=== PATIENT | male | born 1970 | race Caucasian/White ===

== ENCOUNTER → 2020-09-18 12:19 | Outpatient (CLI) | payer OTHER, SELFPAY ==
--- NOTE | 2020-09-18 12:25 | RAD_ITS ---
HISTORY: ABDOMEN PAIN EXAM: KUB COMPARISON: None FINDINGS: # of images incl. paperwork: 4 No free air is perceived. No dilated or loops of bowel are seen. There is no mass or suspicious calcification. No evidence of obstruction. RAD/Abd Inc Decub and/or Erect IMPRESSION: Normal abdomen. at 0421 Reported and signed by: Anthony Rodriguez MD Electronically Signed: Anthony Rodriguez MD at 4:20 EDT Tel , Service support ,
== END ==
PROVIDERS: PCP Family Medicine; Referring Provider Family Medicine; Visit Provider Family Medicine
DX: R10.9 Unspecified abdominal pain (principal)
CPT/HCPCS: 74019

== ENCOUNTER 2024-04-27 07:54 | Emergency (ER) | payer OTHER, SELFPAY ==
[2024-04-27 07:55] VITALS: BP 173/102; PULSE 83; RESP 16; TEMP 36.6; O2SAT 100; BMI 31.6
--- NOTE | 2024-04-27 08:06 | EX.ED.DYSGE1 ---
HPI History of Present Illness Chief Complaint: Dizziness Informant: patient Onset/Context/Timing Onset: Today Context: Sudden Onset Timing: Waxes and wanes Quality: Spinning, woozy Location: Generalized Worsened by: Nothing Relieved by: Nothing Associated Symptoms Associated Symptoms: Sweating Narrative Narrative: Patient presents with dizziness that began this morning. Patient states it has been waxing and waning throughout the day. Patient states it began rather suddenly. Patient describes as a spinning and woozy sensation. Patient states he did break out into a sweat with it. Patient states he has had decreased sleep over the past 2 days. Patient states nothing makes his symptoms better and nothing makes them worse. Patient denies any chest pain or shortness of breath. Patient denies any headaches. Patient denies any nausea or vomiting. PFSH PFSH Medical History no medical history no medical history Home Medications ?Medication ?Instructions ?Recorded ?Last Taken ?Type NK 07/02/23 Unknown History Allergy/AdvReac Type Severity Reaction Status Date / Time No Known Allergies Allergy Verified 04/27/24 07:57 Surgical History no surgical history no surgical history Social History Smoking Status: Never smoker ROS ROS ED Constitutional Constitutional ED: Reports sweats; Denies chills or fever(s) Eyes Eyes: Denies blurry vision or change in vision ENT ENT ED: Denies rhinorrhea or sore throat Cardiovascular Cardiovascular: Denies chest pain or palpitations Respiratory/Chest Respiratory/Chest: Denies cough or dyspnea Gastrointestinal Gastrointestinal: Denies nausea or vomiting Genitourinary Genitourinary ED: Denies dysuria or hematuria Musculoskeletal Musculoskeletal: Denies back pain or neck pain Integumentary Denies abscess or rash Neurologic Neurologic: Denies headache(s) or weakness Allergic/Immunologic Allergic/Immunologic ED: Denies mouth swelling or urticaria EXAM Physical Exam Const Vital Signs: 04/27/24 07:55 04/27/24 09:32 Temperature 97.8 F Temperature Source Oral Pulse Rate 83 Pulse Rate [Lying] 85 Pulse Rate [Sitting (for 1 minute prior to obtaining)] 81 Pulse Rate [Standing (for 1 minute prior to obtaining)] 91 Respiratory Rate 16 Blood Pressure 173/102 H Blood Pressure [Lying] 127/88 H Blood Pressure [Sitting (for 1 minute prior to obtaining)] 113/82 H Blood Pressure [Standing (for 1 minute prior to obtaining)] 136/90 H Blood Pressure Mean 125 Blood Pressure Mean [Lying] 101 Blood Pressure Mean [Sitting (for 1 minute prior to obtaining)] 92 Blood Pressure Mean [Standing (for 1 minute prior to obtaining)] 105 Pulse Ox 100 Oxygen Delivery Method Room Air Positive well nourished and well developed General Appearance ED: well developed and NAD HEENT Reports moist mucous membranes Eyes PERRL and EOMs intact bilaterally Eyes Narrative: There is no nystagmus noted. Neck supple and no JVD Resp normal respiratory effort and clear to auscultation bilaterally Cardio regular rate and regular rhythm GI non-tender and non-distended Palpation: soft Extremity normal to inspection General Extremety ED: Negative for edema or tenderness General Extremity: Negative for edema Neuro oriented x3, CN's II-XII intact bilaterally and no sensory deficits noted Sensorium / Orientation: alert Motor Exam: strength 5/5 throughout Psych mental status grossly normal MDM MDM MDM Narrative Medical decision making narrative: Differential diagnosis includes cardiac dysrhythmia, cardiac ischemia, electrolyte abnormality, pneumonia, pneumothorax, hypertensive urgency, stroke, intracranial bleeding, dehydration, and anxiety. CT scan of the brain will be obtained to assess for stroke or intracranial bleeding. EKG will be obtained to assess for cardiac dysrhythmia and cardiac ischemia. Chest x-ray will be obtained to assess for pneumonia and pneumothorax. CBC will be obtained to assess for leukocytosis and anemia. Basic metabolic profile will be obtained to assess for electrolyte abnormality and renal function. High-sensitivity troponin will be obtained to assess for cardiac ischemia. Orthostatic vital signs will be obtained to assess for dehydration and orthostatic hypotension. Lab Data Attestation: I reviewed the patient's lab results. Lab results narrative: CBC was reviewed and was within normal limits. Basic metabolic profile was reviewed and was essentially within normal limits. High-sensitivity troponin was reviewed and was normal at 4. BGT was reviewed and was normal at 104. Labs: Laboratory Results - last 24 hr 04/27/24 04/27/24 08:35 08:43 WBC 9.5 RBC 5.48 Hgb 15.9 Hct 46.2 MCV 84.3 MCH 29.0 MCHC 34.4 RDW Std Deviation 39.6 RDW Coeff of [place] 12.8 Plt Count 229 MPV 10.0 Immature Gran % (Auto) 0.500 Neut % (Auto) 82.1 H Lymph % (Auto) 9.7 L [place] % (Auto) 6.2 Eos % (Auto) 1.2 Baso % (Auto) 0.3 Absolute Neuts (auto) 7.8 H Absolute Lymphs (auto) 0.92 Nucleated RBC % 0 Sodium 138 Potassium 3.7 Chloride 102 Carbon Dioxide 27.0 Anion Gap 9 BUN 20 H Creatinine 1.24 Estim Creat Clear Calc 79.25 Est GFR (MDRD) Af Amer 78 Est GFR (MDRD) Non-Af 65 BUN/Creatinine Ratio 16.1 Glucose 107 H Calcium 9.3 Troponin I High Sens 4 POC Glucose 104 Radiography Chest X-Ray - ED: 2 View, Read by ED Physician, Read by Radiologist and No Acute Disease Diagnostic Testing: Clinical Impression(s) from Imaging Studies Brain CT 04/27/24 08:30 IMPRESSION: Normal unenhanced CT scan of the brain. Electronically Signed: Yuriy Parkinson MD at 9:11 EST , Chest X-Ray 04/27/24 08:30 IMPRESSION: Normal x-ray examination of the chest. Electronically Signed: Yuriy Parkinson MD at 9:12 EST , CT scan of the brain was obtained. There is no acute intracranial abnormality. This was interpreted by the radiologist and was also independently reviewed by myself. PA and lateral chest x-ray was obtained. There are 2 views. On my independent interpretation, lung bose are clear. There is normal cardiac silhouette. Bony thorax is normal. There is no acute process noted. Radiologist also interpreted the x-ray and agrees. EKG Initial EKG: Attestation: I personally reviewed and interpreted this EKG as follows: Interpretation: Sinus Rhythm (78) and No Acute Injury Pattern Comments: EKG was obtained. On my independent interpretation, it showed a normal sinus rhythm with a rate of 78. CA interval, QRS interval, and QTc intervals were all normal. [place] was normal. There are no acute ST or T wave changes. Prior EKG tracings: not available for review Prior: No Prior Treatment and Re-Evaluation :: Orthostatic vital signs were obtained and were within normal limits. Patient was feeling better on reevaluation. Patient was advised of his findings. Patient was instructed to follow-up with his primary care physician in 5 to 7 days. Patient was instructed to return if worse in any way. Patient understood and was agreeable with the plan. All questions were answered. Discharge Plan Triage Chief Complaint: Dizziness ED Provider: Simon Jorge Dx/Rx/DC Orders Clinical Impression: Dizziness, nonspecific, Elevated blood pressure reading Instructions: ED Dizziness, Uncertain Cause Prescriptions: No Action NK Primary Care Provider: Erich Ware Referrals: Erich Ware MD [Primary Care Provider] - 5-7 Days Print Language: Latvian Disposition Disposition: Home, Self Care
--- NOTE | 2024-04-27 08:30 | RAD_ITS ---
STUDY: X-RAY CHEST REASON FOR EXAM: Male, 53 years old. Dizziness TECHNIQUE: PA and lateral views of the chest. COMPARISON: None. FINDINGS: EKG leads overlie the chest The lungs are clear and expanded. There is no demonstrated pleural abnormality. Normal size heart. Normal mediastinum and miroslava. Normal visualized pulmonary arteries. Normal visualized aortic arch and descending thoracic aorta. Normal visualized thoracic spine. Normal visualized ribs, clavicles, and shoulders. There is no demonstrated abnormality of the visualized soft tissue structures of the upper abdomen. RAD/Chest PA and Lateral IMPRESSION: Normal x-ray examination of the chest. Electronically Signed: Yuriy Parkinson MD at 9:12 EST ,
--- NOTE | 2024-04-27 08:30 | CT_ITS ---
STUDY: CT BRAIN WITHOUT CONTRAST REASON FOR EXAM: Male, 53 years old. Dizziness RADIATION DOSAGE (If Supplied By Facility): CTDIvol = ( 44.99 ) mGy, DLP = ( 796.11 ) mGycm TECHNIQUE: Transaxial CT imaging of the brain was performed without administration of intravenous contrast material. Individualized dose optimization techniques were used for this CT. COMPARISON: No relevant priors. FINDINGS: Normal soft tissue structures. Normal calvarium. Normal size ventricles and extra-axial spaces for the patient''s age. Normal white matter tracts of the cerebral hemispheres. Normal basal ganglia and thalami. Normal brainstem. Normal cerebellum. There is no intracranial hemorrhage. There are no findings of an acute ischemic infarction. Normal visualized paranasal sinuses. CT/Brain/Head without Contrast IMPRESSION: Normal unenhanced CT scan of the brain. Electronically Signed: Yuriy Parkinson MD at 9:11 EST ,
--- NOTE | 2024-04-27 08:36 | EKG12_ITS ---
Test Reason : HTN Blood Pressure : */* mmHG Vent. Rate : 78 BPM Atrial Rate : 78 BPM P-R Int : 158 ms QRS Dur : 98 ms QT Int : 378 ms P-R-T Axes : 65 51 53 degrees QTcB Int : 430 ms Normal sinus rhythm with sinus arrhythmia Normal ECG Confirmed by ZACH RAJPUT, DARIENNE ([id number]), image editor ANT LARIOS ([id number]) on 05/03/2024 9:14:15 AM Referred By: GABRIEL Confirmed By: ADRIENNE SERRANO MD
[2024-04-27 08:52] LABS: Bedside Glucose 104 mg/dL (74-106)
[2024-04-27 08:56] LABS: Absolute Lymphocyte Count 0.92 X10^3/uL (0.83-4.51); Absolute Neutrophil Count 7.8 X10^3/uL (2.0-7.7); Basophil# 0.03 X10^3/uL; Basophil% 0.3 % (0-1); Eosinophil# 0.11 X10^3/uL; Eosinophils% 1.2 % (0-5); Hematocrit 46.2 % (40-54); Hemoglobin 15.9 g/dL (13.0-16.5); Lymphocyte # 0.92 X10^3/ul (0.83-4.51); Lymphocyte % 9.7 % (19-41); Mean Corp Hgb Conc 34.4 g/dL (32-36); Mean Corpuscular Volume 84.3 fL (80-94); Monocyte# 0.59 X10^3/uL; Monocyte% 6.2 % (0-10); NRBC Flagged by Analyzer 0 % (0-5); Neutrophil # 7.75 X10^3/uL (2.7-7.7); Neutrophil % 82.1 % (47-70); Platelet Count 229 K/mm3 (150-450); RBC Distribution Width CV 12.8 % (11.6-14.6); RBC Distribution Width SD 39.6 fl (35.1-43.9); Red Blood Count 5.48 M/mm3 (4.6-6.2); White Blood Count 9.5 K/mm3 (4.4-11.0)
[2024-04-27 09:06] LABS: Anion Gap 9 (5-15); BUN 20 mg/dL (7-18); BUN/Creat Ratio 16.1 RATIO (10-20); Calcium,Total 9.3 mg/dL (8.5-10.1); Chloride 102 mmol/L (98-107); Creatinine, Serum 1.24 mg/dL (0.70-1.30); EST Glomerular Filtration Rate 65 mL/min (>60); Est Glom Filt Rate - Afr Amer 78 mL/min (>60); Estimated Creatinine Clearance 79.25 ml/min; Glucose 107 mg/dL (74-106); Potassium 3.7 mmol/L (3.5-5.1); Sodium Level 138 mmol/L (136-145); Troponin-I HS 4 pg/mL (3.0-78.0)
[2024-04-27 09:32] VITALS: BP 113/82; BP 127/88; BP 136/90; PULSE 81; PULSE 85; PULSE 91
[2024-04-27 09:54] VITALS: BP 136/90
[2024-04-27 10:12] VITALS: BP 127/86; PULSE 74; RESP 15; TEMP 36.7; O2SAT 99
== END 2024-04-27 10:13 | disposition home or self-care (01) ==
PROVIDERS: Emergency Provider Emergency Medicine; PCP Family Medicine; Visit Provider Emergency Medicine
DX: R42 Dizziness and giddiness (principal); R03.0 Elevated blood-pressure reading, without diagnosis of hypertension
CPT/HCPCS: 70450; 71046; 80048; 82962; 84484; 85025; 93005; 99285